=== PATIENT | female | born 1985 | race American Indian/Alaskan Native ===

== ENCOUNTER 2020-07-06 09:02 | Outpatient (CLI) | payer OTHER | END 2020-07-06 09:25 | disposition home or self-care (01) | LOC: NST 09:02 | PROVIDERS: ATTEND Obstetrics & Gynecology | DX: Z34.83 Encounter for supervision of other normal pregnancy, third trimester (principal) ==

== ENCOUNTER 2020-07-13 07:24 | Outpatient (CLI) | payer OTHER | END 2020-07-13 09:15 | disposition home or self-care (01) | LOC: NST 07:24 | PROVIDERS: ATTEND Obstetrics & Gynecology | DX: Z34.83 Encounter for supervision of other normal pregnancy, third trimester (principal) ==

== ENCOUNTER 2020-07-15 18:24 | Inpatient (IN) | payer OTHER ==
[~2020-07-15] VITALS: Ht 152.4 cm; Wt 2.7 kg
[2020-07-15] MEDS ORDERED: PRENATAL TABLE1 EAC1 PO (19:40)
[2020-07-15] MEDS ORDERED: IRON325 MG PO (19:40)
== END 2020-07-19 11:27 | disposition home or self-care (01) | DRG 788 ==
LOC: LDR 18:24 → SURG-SUITE 07-16 17:53
PROVIDERS: ADMIT Obstetrics & Gynecology; ATTEND Obstetrics & Gynecology
PROC: 3E0D7GC Introduction of Other Therapeutic Substance into Mouth and Pharynx, Via Natural or Artificial Opening (ICD-10-PCS; 2020-07-15)
PROC: 4A1HXFZ Monitoring of Products of Conception, Cardiac Rhythm, External Approach (ICD-10-PCS; 2020-07-15)
PROC: 10907ZC Drainage of Amniotic Fluid, Therapeutic from Products of Conception, Via Natural or Artificial Opening (ICD-10-PCS; 2020-07-16)
PROC: 3E033VJ Introduction of Other Hormone into Peripheral Vein, Percutaneous Approach (ICD-10-PCS; 2020-07-16)
PROC: 10D00Z1 Extraction of Products of Conception, Low, Open Approach (ICD-10-PCS; principal; 2020-07-16 16:00)
DX: O62.1 Secondary uterine inertia (principal); O61.0 Failed medical induction of labor; Z3A.39 39 weeks gestation of pregnancy; Z37.0 Single live birth; Z20.822 Contact with and (suspected) exposure to COVID-19

== ENCOUNTER 2024-03-04 14:29 | Outpatient (CLI) | payer OTHER ==
[~2024-03-04 14:29] MED LIST: IRON325 MG PO; PRENATAL TABLE1 EAC1 PO
== END 2024-03-04 14:30 | disposition home or self-care (01) ==
LOC: PRENATAL 14:29
PROVIDERS: ATTEND Obstetrics & Gynecology Maternal & Fetal Medicine
DX: O09.93 Supervision of high risk pregnancy, unspecified, third trimester (principal); O26.849 Uterine size-date discrepancy, unspecified trimester; O36.8199 Decreased fetal movements, unspecified trimester, other fetus; O09.529 Supervision of elderly multigravida, unspecified trimester; O34.219 Maternal care for unspecified type scar from previous cesarean delivery; Z3A.31 31 weeks gestation of pregnancy

== ENCOUNTER 2024-04-18 08:21 | Inpatient (IN) | payer OTHER ==
[~2024-04-18] VITALS: Ht 152.4 cm; Wt 2.7 kg
[2024-04-18 09:16] VITALS: BP 111/76
[2024-04-18 09:50] LABS: HEMATOCRIT 38.1 % (36.0-45.00); HEMOGLOBIN 12.9 g/dL (12.0-15.00); MEAN CELL VOLUME 90.2 fL (80.00-100.00); MEAN CORPUSCULAR HEMOGLOBIN 30.6 pg (27.00-32.0); MEAN CORPUSCULAR HGB CONC 33.9 g/dl (32.0-36.0); PLATELET COUNT 131 K/uL (150-450); RED BLOOD COUNT 4.22 M/uL (4.00-6.00); RED CELL DISTRIBUTION WIDTH 14.3 % (11.5-14.5)
[2024-04-18 09:56] LABS: URINE APPEARANCE Clear; URINE BILIRRUBIN Negative (NEGATIVE); URINE BLOOD Negative; URINE COLOR Yellow; URINE GLUCOSE Negative (NEGATIVE); URINE KETONE Negative (NEGATIVE); URINE LEUKOCYTE Small; URINE NITRATE Negative; URINE PROTEIN Negative (NEGATIVE); URINE UROBILINOGEN 0.2 E.U./dl
[2024-04-18 10:00] LABS: URINE BACTERIA 4438.9 uL (0.0-1933); URINE RBC 10.6 uL (0.0-20.8); URINE WBC 49.3 uL (0.0-23.2)
[2024-04-18] MEDS ORDERED: CEFOXITIN SODIUM 2,000 MG VIAL IV SCH (10:15)
[2024-04-18] MEDS ORDERED: RINGERS SOLUTION,LACTATED 1,000 ML IV SCH (10:15)
[2024-04-18 10:25] LABS: INR 0.94; PARTIAL THROMBOPLASTIN TIME 28.2 SECONDS (22.0-34.0); PROTHROMBIN TIME 10.3 SECONDS (9.0-11.5)
[2024-04-18 10:31] LABS: URINE CAST 0.61 uL (0.0-1.40)
[2024-04-18 10:50] LABS: ALBUMIN 3.1 gm/dL (3.4-5.0); BILIRUBIN TOTAL 0.42 mg/dL (0.3-1.2); CALCIUM 9.1 mg/dL (8.5-10.1); CREATININE SERUM 0.53 mg/dL (0.55-1.02); GFR 129.8; GLOBULINA 3.8 G/DL (2.4-3.5); POTASSIUM 4.1 mEq/L (3.5-5.1); TOTAL PROTEIN 6.9 gm/dL (6.4-8.2)
[2024-04-18 11:35] VITALS: BP 109/79
[2024-04-18 15:19] VITALS: BP 107/72
[2024-04-18] MEDS ORDERED: OXYTOCIN 1,000 ML IV SCH (16:45)
[2024-04-18] MEDS ORDERED: MEPERIDINE HCL/PF 50 MG/ML VIAL IM PRN (17:00)
[2024-04-18] MEDS ORDERED: PROMETHAZINE HCL 50 MG/ML AMPUL IM PRN (17:00)
[2024-04-18] MEDS ORDERED: ERYTHROMYCIN BASE OPHT 1GM EACH TUBE OP ONE (17:00)
[2024-04-18] MEDS ORDERED: SIMETHICONE 125 MG CAPSULE PO SCH (18:00)
[2024-04-18] MEDS ORDERED: MORPHINE SULFATE 4 MG/ML VIAL IV ONE ×2 (18:25→18:55)
[2024-04-18 20:44] VITALS: BP 112/67
[2024-04-19 00:11] VITALS: BP 112/74
[2024-04-19 00:35] LABS: HEMATOCRIT 38.6 % (36.0-45.00); HEMOGLOBIN 12.8 g/dL (12.0-15.00); MEAN CELL VOLUME 91.7 fL (80.00-100.00); MEAN CORPUSCULAR HEMOGLOBIN 30.5 pg (27.00-32.0); MEAN CORPUSCULAR HGB CONC 33.2 g/dl (32.0-36.0); RED BLOOD COUNT 4.21 M/uL (4.00-6.00); RED CELL DISTRIBUTION WIDTH 13.9 % (11.5-14.5)
[2024-04-19 00:37] LABS: PLATELET COUNT 131 K/uL (150-450)
[2024-04-19 04:30] VITALS: BP 115/74
[2024-04-19 08:25] VITALS: BP 108/72
[2024-04-19] MEDS ORDERED: ACETAMINOPHEN WITH CODEINE 1 UDTAB TABLET PO PRN (08:45)
[2024-04-19] MEDS ORDERED: NAPROXEN 500 MG TABLET PO PRN (08:45)
[2024-04-19] MEDS ORDERED: DOCUSATE SODIUM 100MG CAP PO SCH (09:00)
[2024-04-19 13:55] VITALS: BP 122/84
[2024-04-19 16:00] VITALS: BP 117/72
[2024-04-20] VITALS: BP 113/67
[2024-04-20 08:51] VITALS: BP 132/72
[2024-04-20 16:07] VITALS: BP 121/86
[2024-04-21 00:45] VITALS: BP 124/82
[2024-04-21 09:12] VITALS: BP 119/82
[2024-04-21] MEDS ORDERED: NAPR500T14 PO (12:32)
[2024-04-21] MEDS ORDERED: COLACE100 MG PO (12:32)
== END 2024-04-21 13:38 | disposition home or self-care (01) | DRG 788 ==
LOC: LDR 08:21 → O/R 16:31 → OB/GYN 18:43
PROVIDERS: Obstetrics & Gynecology; ADMIT Obstetrics & Gynecology; ATTEND Obstetrics & Gynecology
PROC: 4A1HXCZ Monitoring of Products of Conception, Cardiac Rate, External Approach (ICD-10-PCS; 2024-04-18)
PROC: 10D00Z1 Extraction of Products of Conception, Low, Open Approach (ICD-10-PCS; principal; 2024-04-18 16:00)
DX: O34.211 Maternal care for low transverse scar from previous cesarean delivery (principal); Z3A.39 39 weeks gestation of pregnancy; Z37.0 Single live birth; Z20.822 Contact with and (suspected) exposure to COVID-19